=== PATIENT | female | born 1970 | race Caucasian/White ===

== ENCOUNTER → 2016-08-27 | Outpatient (CLI) | payer MEDICARE, OTHER ==
--- NOTE | 2016-08-27 13:39 | US ---
EXAMINATION TYPE: US thyroid st tissue head/neck DATE OF EXAM: 08/27/2016 9:10 AM COMPARISON: Previous thyroid ultrasound 14 June 2015 CLINICAL HISTORY: E04.1 Thyroid nodule. GLAND SIZE: Right Lobe: 4.5 x 1.5 x 1.6 cm Overall Parenchyma: homogenous Left Lobe: 4.0 x 1.7 x 1.5 cm Overall Parenchyma: homogeneous Isthmus Thickness: 0.2 cm NODULES RIGHT: # of nodules measured on right: 0 LEFT: # of nodules measured on left: 3 1. 0.4 X 0.2 x 0.2 cm hypoechoic solid nodule at the lower pole with well-defined margins. This no dule is wider than tall and shows no intranodular vascularity. Prior size: 0.4 x 0.2 x 0.2 cm 2. 0.6 X 0.5 x 0.7 cm isoechoic solid nodule at the mid pole with well-defined margins. This nodule is wider than tall and shows no intranodular vascularity. Prior size: 0.5 x 0.4 x 0.2 cm 3. 0.9 X 0.5 x 0.7 cm hypoechoic solid nodule at the lower pole with poorly defined margins. This n odule is wider than tall and shows no intranodular vascularity. Prior size: 1.1 x 0.5 x 0.9 cm ISTHMUS: # of nodules measured in the isthmus: 0 Bilateral neck scanned, no evidence of lymphadenopathy. IMPRESSION: Findings are similar to prior exam.
== END | disposition home or self-care (01) ==
LOC: RADUSWWP 08:49
PROVIDERS: ATTEND Otolaryngology
DX: E04.2 Nontoxic multinodular goiter (principal)
CPT/HCPCS: 76536

== ENCOUNTER → 2020-02-24 | Day surgery (SDC) | payer MEDICARE, OTHER ==
[2020-02-24 10:16] VITALS: RESP 16; TEMP 98.1
[2020-02-24 11:37] VITALS: BP 97/62; PULSE 64
--- NOTE | 2020-02-24 12:05 | USB ---
Reason for exam: clinical finding. Physical Findings: Nurse did not find any significant physical abnormalities on exam. US Breast LT Left complete breast ultrasound includes all four quadrants, the retroareolar region and axilla. Finding demonstrates a 4 x 4 x 7mm lobular, cystic lesion at 1 o'clock, a 11 x 5 x 10mm oval, solid, hypoechoic lesion at 2 o'clock, a 8 x 5 x 16mm oval, solid, hypochoic lesion at 2 o'clock, a 12 x 9 x 13mm oval, solid, hypoechoic lesion at 4 o'clock, a 4 x 3 x 4mm oval, mixed lesion at 6 o'clock and a 6 x 3 x 7mm oval, mixed lesion at 7 o'clock. These results were verbally communicated with the patient and result sheet given to the patient on 02/24/20. ASSESSMENT: Suspicious, BI-RAD 4 RECOMMENDATION: Ultrasound core biopsy of the left breast. (4 o'clock) Called Dr. Ramos's office with mammographic findings. Dr. Ramos will set up biopsy, waiting for stereotactic core biopsy results. PRELIMINARY REPORT CALLED AND FAXED TO DR. RAMOS ON 02/24/20.
--- NOTE | 2020-02-24 12:55 | MM ---
EXAMINATION TYPE: MG stereo VAD BX addl LT, MG stereo VAD BX LT DATE OF EXAM: 02/24/2020 COMPARISON: Mammogram from outside institution 02/03/2020 CLINICAL HISTORY: Abnormal mammogram TECHNIQUE: Stereotactic guided core biopsy of left breast. FINDINGS: The procedure of stereotactic guided core biopsy was explained to the patient. Benefits, alternatives, and risks were discussed. An informed consent was then obtained. The shortness pathway for biopsy was chosen. Shortness pathway was inferior approach. I performed the localization. The overlying skin was prepped, lidocaine used for local anesthesia. A vacuum assisted biopsy gun was used to obtain multiple core samples. The patient tolerated the procedure well without any immediate complication. The patient was kept in the radiology department for short stay after the procedure and then discharged home in stable condition. Targeted calcifications are identified in specimen mammogram. 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 The second target was then marked. Using similar technique, core specimens were obtained. Biopsy clip was deployed, dumbbell left in the more anterior position. Hemostasis achieved. No immediate application. Patient remained in stable condition. IMPRESSION: SUCCESSFUL, UNCOMPLICATED STEREOTACTIC GUIDED CORE BIOPSIES OF 2 DISCRETE AREAS OF CONCERN IN THE left BREAST, FULL PATHOLOGY RESULTS TO FOLLOW. These procedures performed by the undersigned. Pathology Results: Benign A. LEFT BREAST, SITE A POSTERIOR, STEREOTACTIC CORE BIOPSY: Fibrocystic changes including sclerosing adenosis with calcifications, cysts, columnar cell change, and fibrosis. B. LEFT BREAST, SITE B ANTERIOR, STEREOTACTIC CORE BIOPSY: Fibrocystic changes including cysts and sclerosing adenosis with calcifications, fibrosis, columnar cell change and apocrine metaplasia. Recommendation Follow up mammogram of the left breast in 6 months. MAMIE
== END ==
LOC: RADMAMWWP 09:02
PROVIDERS: ATTEND Surgery
DX: N60.12 Diffuse cystic mastopathy of left breast (principal); N60.22 Fibroadenosis of left breast; N60.82 Other benign mammary dysplasias of left breast
CPT/HCPCS: 88305; 19081; 19082; 76641; A4648; J2001

== ENCOUNTER → 2020-03-03 | Outpatient (CLI) | payer MEDICARE, OTHER ==
--- NOTE | 2020-03-06 10:47 | PE ---
EXAMINATION TYPE: PET CT fusion skull to thigh DATE OF EXAM: 03/03/2020 COMPARISON: CT abdomen and pelvis May 17, 2014. MRI bilateral breast February 07, 2020. Ultrasoun d left breast February 24, 2020. HISTORY: Newly diagnosed bilateral breast cancer . 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 Images are reviewed on the computer in the coronal, a xial, and sagittal planes. Reconstructed rotating images are created on independent workstation and reviewed on the computer. A noncontrast CT is performed in conjunction with the PET scan. Blood glu cose level equals 81. SCAN: Initial Scan FINDINGS: SKULL BASE AND NECK: No areas of suspicious hypermetabolic uptake. CHEST, MEDIASTINUM, AND HILAR REGION: Persistent several abnormal prominent and enlarged slightly hyp ermetabolic right axillary lymph nodes correlates with MRI, largest measures 1.8 x 1.3 cm axial image 71, max SUV is less than 2.5. Some adjacent fat stranding is likely product of attempted sampling or biopsy. There are low-lying abnormal slightly hypermetabolic right-sided lymph nodes redemonstrated. Max SUV less than 2.5. There is abnormal hypermetabolic uptake in the lateral aspect of the dense fibroglandular tissue to a lesser extent than the degree of abnormal enhancement on MRI, max SUV is 4.57 on axial image 88. Chandrakant gth of roughly 4 to 5 cm noted long axis. Mild diffuse hypermetabolic uptake surrounding this area is noted throughout the lateral portion of the right breast slightly corresponding to MRI. No suspicious hypermetabolic uptake or concerning adenopathy in the left breast. No additional areas of suspicious hypermetabolic uptake. ABDOMEN AND PELVIS: Normal excretion is seen. No suspicious hypermetabolic uptake. OSSEOUS STRUCTURES: No suspicious hypermetabolic uptake. OTHER CT: There is a left internal jugular Mediport catheter terminating in SVC. Cholecystectomy clips are present. Uterus surgically absent. IMPRESSION: Known malignancy right breast with right axillary adenopathy. No hypermetabolic uptake to suggest malignant involvement in the left breast or axilla on PET. No metastatic malignancy identif ied.
== END | disposition home or self-care (01) ==
LOC: RADPETMAIN 15:08
PROVIDERS: ATTEND Internal Medicine Hematology & Oncology
DX: C50.511 Malignant neoplasm of lower-outer quadrant of right female breast (principal); R59.0 Localized enlarged lymph nodes; E11.9 Type 2 diabetes mellitus without complications
CPT/HCPCS: 78815; A9552

== ENCOUNTER 2021-11-30 05:45 | Day surgery (SDC) | payer MEDICARE, OTHER ==
[2021-11-30] MEDS ORDERED: LIDOCAINE 1% (10MG/ML) FOR IV START INTRADERMA PRN (06:01)
[2021-11-30] MEDS ORDERED: LACTATED RINGERS 1,000 ML IV SCH (06:01)
[2021-11-30] MEDS ORDERED: HYDROmorphone 0.5 MG/0.5 ML SYRINGE IVP PRN (06:01)
[2021-11-30] MEDS ORDERED: DEXAMETHASONE SOD PHOSPHATE 4 MG/ML 1 ML VIAL IV ONE (06:01)
[2021-11-30] MEDS ORDERED: ONDANSETRON 4 MG/2 ML VIAL IVP ONE (06:01)
[2021-11-30 06:44] LABS: Glucose,Whole Blood 97 mg/dL (70-110)
[2021-11-30] MEDS ORDERED: fentaNYL (PF) 50 MCG/ML 2 ML AMP IVP ONE (06:55)
[2021-11-30] MEDS ORDERED: MIDAZOLAM 2 MG/2 ML VIAL IVP ONE (06:55)
[2021-11-30] MEDS ORDERED: ROPIVACAINE 5 MG/ML 30 ML VIAL ONE (07:21)
[2021-11-30] MEDS ORDERED: SUCCINYLCHOLINE CHLORIDE 200 MG/10 ML VIAL IV ONE (07:21)
[2021-11-30] MEDS ORDERED: PROPOFOL 10 MG/ML 20 ML VIAL IV ONE (07:21)
[2021-11-30] MEDS ORDERED: LIDOCAINE 2% INJ 20 MG/ML (2 ML VIAL) ONE (07:21)
[2021-11-30] MEDS ORDERED: fentaNYL (PF) 50 MCG/ML 2 ML AMP ONE (07:21)
[2021-11-30] MEDS ORDERED: SODIUM CHLORIDE 0.9% (PF) 10 ML VIAL ONE (07:21)
[2021-11-30] MEDS ORDERED: ceFAZolin 1,000 MG in SODIUM CHLORIDE 0.9% 1,000 ML IRRIGATION ONE (07:26)
--- NOTE | 2021-11-30 08:20 | P.ANPRN ---
Procedure Note - Anesthesia - Nerve Block Performed Left Adductor Canal Time Out Performed: Yes (06:54) Date of Procedure: 11/30/21 Procedure Start Time: Procedure Stop Time: 07:01 Location of Patient: PreOp Indication: Acute Post-Operative Pain, Requested by Surgeon (Dr Jarrett) Sedation Type: Sedate with meaningful contact maintained Preparation: Sterile Prep Position: Supine Catheter: None Needle Types: Pajunk Needle Gauge: 21 Ultrasound used to visualize needle placement: Yes Ultrasound used to observe medication spread: Yes Injectate: 0.5% Ropivacaine (see comment for volume) (15cc +5cc PF Normal saline) Blood Aspirated: No Pain Paresthesia on Injection Noted: No Resistance on Injection: Normal Image Stored and Saved: Yes Events: Uneventful and Well Tolerated
--- NOTE | 2021-11-30 08:22 | P.ANPRN ---
Procedure Note - Anesthesia - Nerve Block Performed Left Popliteal Time Out Performed: Yes Date of Procedure: 11/30/21 Procedure Start Time: : Procedure Stop Time: :08 Location of Patient: PreOp Indication: Acute Post-Operative Pain, Requested by Surgeon (Dr Jarrett) Sedation Type: Sedate with meaningful contact maintained Preparation: Sterile Prep Position: Right Lateral Catheter: None Needle Types: Pajunk Needle Gauge: 21 Ultrasound used to visualize needle placement: Yes Ultrasound used to observe medication spread: Yes Injectate: 0.5% Ropivacaine (see comment for volume) (15cc +5cc PF Normal saline) Blood Aspirated: No Pain Paresthesia on Injection Noted: No Resistance on Injection: Normal Image Stored and Saved: Yes Events: Uneventful and Well Tolerated
--- NOTE | 2021-11-30 08:35 | P.OP ---
Date of Procedure: 11/30/21 Preoperative Diagnosis: Left ankle instability Postoperative Diagnosis: Same Procedure(s) Performed: Secondary repair of left lateral ankle ligaments Implants: Arthrex internal brace Arthrex fiber Pollo anchors 2 Anesthesia: GETA Surgeon: Jcaobo Jarrett Estimated Blood Loss (ml): 3 Pathology: none sent Condition: stable Disposition: PACU Description of Procedure: Prior to the patient being brought to the operating room, anesthesia administered a nerve block on the affected extremity, utilizing ultrasonic guidance and mild sedation. Once completed the patient was taken to the operating room and placed on table supine position. Timeout was taken to c onfirm correct patient identifiers, correct procedure, and correct site of surgery. When all staff in the room were in agreement with the timeout, the patient was induced and placed under general anesthesia. A bump was placed underneath the hip to internally rotate the affected leg. A well-padded tourniquet was placed on the midcalf and then the affected extremity prepped and draped in usual manner. The leg was exsanguinated and the tourniquet inflated to 250 mmHg. Attention was directed over the lateral ankle where a curved incision was made just anterior to the lateral malleolus. The incision was deepened down to the subcutaneous tissue careful to identify, avoid, and retract any neurovascular structures and cauterize any bleeding vessels. Blunt dissection was continued down to level of the lateral ankle joint capsule and ligamentous structures. The soft tissue structures were sharply incised off the anterior surface the lateral malleolus and reflected anteriorly. A ronguer was used to remove the cortical bone off the anterior surface the lateral malleolus which would help facilitate tissue re-adhesion upon repair. With the ankle at 90 and in neutral inversion and eversion, the capsule was palpated on the lateral surface of the talus anterior to the articular surface. A small stab incision was made in the area of the talar body avoiding both the ankle and subtalar joints and near the junction of the neck. A drill hole was then placed utilizing a 3.4 mm drill bit into the talar body avoiding both the ankle and subtalar joints. The hole was then tapped and then the 4.75 mm swivel lock anchor was inserted and impacted and then advanced to proper depth. The same drill bit was used to create the hole for the 3.5 mm anchor in the lateral malleolus. Drill holes for the Arthrex fiber Eric anchors were made one inferior and one superior to the 3.4 mm drill hole in the lateral malleolus. With the drill guides for the anchor still in place, the anchors were inserted into the lateral malleolus and impacted to proper depth. The topographical surveyor and guide were removed and then tension placed on the suture to lock anchors in place. Once both anchors were in place the wound was thoroughly irrigated with antibiotic saline. The suture on the fiber Pollo anchors was then used to capture the distal ligamentous and capsular structures on the talus and then with the ankle in maximum dorsiflexion and eversion, the suture was tied repairing the ligament. The 2 arms of the internal brace suture were then passed through the 3.5 mm anchor which was then aligned with the drill hole lateral malleolus. Utilizing described tensioning techniques, the anchor and suture were inserted into the drill hole and then the anchor advanced to lock the suture in place. At that time the ankle was tested for stability where anterior drawer and inversion stress were both negative. The wound was again irrigated with antibiotic saline. The fiber Pollo suture was used to sew the retinaculum over the lateral malleolus along with the periosteal flap in a pants over vest fashion. Subcu closure was done with 4-0 Monocryl and skin closure done with 3-0 Stratafix in a running subcuticular manner. Dermal glue was applied across the incision and allowed to dry. Steri-Strips are placed across incision. The incision was covered with an Arthrex jumpstart dressing and then a bulky dry dressing. The tourniquet was released and capillary refill return to all digits on the right foot. The patient was then placed in a well-padded, well molded plaster posterior mold/sugar tong splint. Ankle was held in neutral position until the splint dried. Anesthesia was reversed and the patient was taken recovery with vital signs stable.
[2021-11-30 08:58] VITALS: TEMP 98.6
[2021-11-30 10:11] VITALS: BP 109/72; PULSE 72; RESP 20
== END 2021-11-30 10:32 | disposition home or self-care (01) ==
LOC: OR 05:45
PROVIDERS: ATTEND Podiatrist
DX: M25.372 Other instability, left ankle (principal); G89.18 Other acute postprocedural pain; E11.9 Type 2 diabetes mellitus without complications; Z88.2 Allergy status to sulfonamides; Z88.8 Allergy status to other drugs, medicaments and biological substances; Z79.899 Other long term (current) drug therapy
CPT/HCPCS: 64447; 64445; 76942; 27698; C1713 ×3; J2250; J0330; J1100; J0690 ×2; J2405; J3010; J2795; J2704; J2001